=== PATIENT | female | born 1960 | race Caucasian/White ===

== ENCOUNTER 2016-11-12 14:32 | Emergency (ER) | payer MEDICARE, MEDICAID ==
[~2016-11-12] VITALS: Ht 160 cm; Wt 73.0 kg
[~2016-11-12 14:32] MED LIST: AMIT150T PO; ATEN-102 PO; BUSP15TA PO; CHLOR50 PO; EFFE150C PO; FENO160T2 PO; LORA-474 PO; MEVA40TA PO; POTA-243 PO; [UNRECOGNIZED DRUG - CODE] PO
[2016-11-12 14:35] VITALS: BP 140/83; PULSE 64; RESP 16; TEMP 98; O2SAT 96
[2016-11-12] MEDS ORDERED: FENO160T PO (14:47)
[2016-11-12] MEDS ORDERED: LINA145C PO (14:47)
[2016-11-12] MEDS ORDERED: ATEN50TA PO (14:47)
[2016-11-12] MEDS ORDERED: AMIL5 PO (14:47)
[2016-11-12] MEDS ORDERED: POTA10TA2 PO (14:47)
--- NOTE | 2016-11-12 15:10 | PD ---
HPI Chief Complaint: Fall Time Seen by Provider: 14:55 Travel History International Travel<30 days: No Contact w/Intl Traveler<30days: No Traveled to known affect area: No History of Present Illness HPI 55-year-old female presents to the emergency room for evaluation of tailbone pain for the past 4 days. Patient was walking her dog when she tripped and fell backwards landing directly on her buttocks. Since then she has had severe pain in her tailbone especially with lying down, sitting down, and pressure. Pain is described as constant, dull. No radiation. She has not taken anything or done anything for her symptoms. Patient denies any other injuries. Denies wrist pain, back pain, hitting her head, loss of consciousness, upper or lower extremity paresthesias, loss of bowel or bladder control, and saddle anesthesia. PFSH Past Medical History Arthritis: Yes Asthma: No Anxiety: Yes Depression: Yes Heart Rhythm Problems: No Cancer: No Cardiovascular Problems: Yes High Cholesterol: No Chest Pain: No Congestive Heart Failure: No COPD: No Endocrine: No Gastrointestinal Disorders: Yes (ibs) Genitourinary: No Hypertension: Yes Immune Disorder: No Implanted Vascular Access Dvce: No Musculoskeletal: No Neurologic: No Psychiatric: Yes Reproductive: No Respiratory: No Sleep Apnea: No Tetanus Vaccination: > 5 Years Influenza Vaccination: No ?: Not Past Surgical History Joint Replacement: Yes (bialteral TOTAL KNEE) Pacemaker: No Other Surgery: No Social History Tobacco Use: Yes (occ) Substance Use: No Allergies-Medications (Allergen,Severity, Reaction): Coded Allergies: Cephalosporins (Verified Allergy, Severe, PT DOESNT REMEMBER REACTION, 04/20) Keflex (Verified Allergy, Severe, 11/12/16) doesn't remember the reaction Depakote (Unverified Allergy, Unknown, 11/12/16) Reported Meds & Prescriptions Reported Meds & Active Scripts Active Reported Linzess (Linaclotide) 145 Mcg Cap 145 Mcg PO DAILY Potassium Chloride ER (Potassium Chloride) 10 Meq Tab 10 Meq PO DAILY Amiloride (Amiloride HCl) 5 Mg Tab 5 Mg PO DAILY Fenofibrate 160 Mg Tab 160 Mg PO DAILY Atenolol 50 Mg Tab 50 Mg PO BID Review of Systems Except as stated in HPI: all other systems reviewed are Neg Physical Exam Narrative GENERAL: Well-nourished, well-developed female in no acute distress. Afebrile. Ambulatory. SKIN: Focused skin assessment warm/dry. No erythema or ecchymosis. HEAD: Normocephalic. EYES: No scleral icterus. No injection or drainage. NECK: Supple, trachea midline. No JVD or lymphadenopathy. CARDIOVASCULAR: Regular rate and rhythm without murmurs, gallops, or rubs. RESPIRATORY: Breath sounds equal bilaterally. No accessory muscle use. BACK: No CVA tenderness. No rash. No point tenderness on palpation of the spine. Tenderness to palpation of the coccyx. Data Data Last Documented VS Vital Signs Date Time Temp Pulse Resp B/P Pulse Ox O2 Delivery O2 Flow Rate FiO2 11/12/16 14:35 98.0 64 16 140/83 96 MDM Medical Decision Making Medical Screen Exam Complete: Yes Emergency Medical Condition: Yes Medical Record Reviewed: Yes Differential Diagnosis Coccydynia, fracture, contusion Narrative Course 55-year-old female presents to the emergency room for evaluation of coccyx pain for the past 4 days. Patient tripped and fell, landing directly on her coccyx. No focal neurological deficits. No midline tenderness of the lumbar spine. She is ambulatory. No erythema or ecchymosis. It is tender to palpation. Patient was informed that the utility of x-ray is limited as it will not change the treatment. She was given Toradol in the emergency room. Discharged with prescription for ibuprofen. Told to follow-up with a primary care physician or return for worsening symptoms. She understands and agrees to plan. Diagnosis Primary Impression: Coccydynia Referrals: Primary Care Physician Patient Instructions: Coccyx Injury (ED), General Instructions Additional Instructions: Rest and drink plenty of fluids .Take ibuprofen with food as directed, as needed for pain. Apply ice to the affected area for 20 minutes at a time, as needed for pain and swelling. Follow-up with a primary care physician. Return to the emergency room for worsening symptoms. Disposition: 01 DISCHARGE HOME Condition: Stable Ana Ignacio Nov 12, 2016 15:10
[2016-11-12] MEDS ORDERED: IBUP-232 PO (15:11)
[2016-11-12] MEDS ORDERED: KETOROLAC TROMETHAMINE 60 MG/2 ML (IM) VIAL IM ONE (15:15)
== END 2016-11-12 16:03 | disposition home or self-care (01) ==
LOC: PHEFT 14:32
DX: M53.3 Sacrococcygeal disorders, not elsewhere classified (principal); I10 Essential (primary) hypertension; K58.9 Irritable bowel syndrome, unspecified; Z72.0 Tobacco use; W01.0XXA Fall on same level from slipping, tripping and stumbling without subsequent striking against object, initial encounter; Y93.K1 Activity, walking an animal; Y92.9 Unspecified place or not applicable; Y99.8 Other external cause status
CPT/HCPCS: 96372; 99284; J1885